=== PATIENT | female | born 1945 | race Caucasian/White ===

== ENCOUNTER 2025-01-10 14:48 | Observation (INO) | payer OTHER ==
[~2025-01-10] VITALS: Ht 157.5 cm; Wt 40.8 kg
--- NOTE | 2025-01-10 15:59 | EKG ---
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
[2025-01-10 16:17] LABS: IMMATURE GRANULOCYTE ABSOLUTE 0.04 K/uL (0-1); NUCLEATED RED BLOOD CELLS 0.0 % (0.0-0.19); PLATELET COUNT (AUTO) 249 K/uL (130-400); RED BLOOD CELL COUNT(AUTO) 4.63 MIL/uL (4.00-5.50); RED CELL DISTRIBUTION WIDTH 15.9 % (11.0-15.5); WHITE BLOOD COUNT (AUTO) 9.9 K/uL (4.8-10.8)
[2025-01-10 16:26] LABS: CREATININE 0.7 mg/dL (0.5-1.0); GLOMERULAR FILTR. RATE CALC 87.0 mL/min (>90); GLUCOSE,RANDOM 94.0 mg/dL (70-105); SODIUM SERUM 135.0 mmol/L (136-145); UREA NITROGEN, BLOOD 14.0 mg/dL (7-18)
--- NOTE | 2025-01-10 16:33 | HMCIMG ---
EXAM: CR Chest, 1 View. CLINICAL HISTORY: [facility] COMPARISON: None provided. FINDINGS: LUNGS: There is no mass, infiltrate, or acute pulmonary abnormality. PLEURAL SPACES: No pleural effusion or pneumothorax. MEDIASTINUM: Cardiac size and mediastinal contours within normal limits. BONES: No acute osseous abnormality. IMPRESSION: No acute cardiopulmonary pathology is evident. /Bypro
[2025-01-10 16:36] LABS: ASPARTATE AMINOTRANSFERASE 33.0 U/L (10-37); CREATINE KINASE, TOTAL 51.0 U/L (21-232); TOTAL PROTEIN, SERUM 8.7 g/dL (6.0-8.3)
--- NOTE | 2025-01-10 16:40 | NUR ---
PT REFUSING BLOOD PRESSURE OR BEING PLACED ON THE MONITOR
[2025-01-10] MEDS ORDERED: 0.9% NACL 500ML IV.SOLN 500 ML IV SCH (17:00)
--- NOTE | 2025-01-10 17:00 | NUR ---
PT REFUSING IV FLUIDS STATES DOES NOT NEED THEM
--- NOTE | 2025-01-10 18:38 | ERN ---
ED Note History of Present Illness Stated Complaint: GBW Chief Complaint: Weakness Time Seen by MD: 15:07 Dictation: 79-year-old female presenting to the emergency department with failure to thrive EMS reported patient had poor hygiene at home and running food/mole leave food. Transported after not feeling well decreased p.o. intake and nausea Allergies: Coded Allergies: No Known Drug Allergies (Unverified Allergy, Intermediate, 12/08/24) Home Meds No Active Prescriptions or Reported Meds Past Medical History Past Medical History: No Pertinent History Surgical History: Surgical History Other: DENIES Social History: ETOH History: Not Applicable Review of System Dictation Constitutional: Pr a Eyes: Negative for injury, pain,redness, and discharge ENT: Negative for injury,pain or swelling Cardiovascular: Negative for chest pain, palpitations, and edema Respiratory: Negative for shortness of breath, cough, and wheezing, Abdomen/GI: Per HPI Back: Negative for injury and pain : Negative for injury, bleeding and discharge MS/Extremity: Negative for injury and deformity Skin: Negative for rash, and discoloration Neuro: Per HPI Initial Vital Sign VS Vital Signs Date Time Temp Pulse Resp B/P (MAP) Pulse Ox O2 Delivery O2 Flow Rate FiO2 01/10/25 15:47 90 16 138/68 96 Room Air 0 Physical Exam Dictation General: awake, alert, unkempt Head/Face: Normocephalic, atraumatic Eyes: PERRL, EOMI, vision at baseline ENT: oral cavity clear, TMs clear, no signs of infection Neck: Trachea midline, supple, no nuchal rigidity Cardiovascular: RRR, normal S1/S2, No MRGs, no JVD Respiratory: CTAB, no respiratory distress, No rales or wheezes Abdomen: Soft, non-tender, non-distended, normal bowel sounds, no guarding or rebound. Skin: Warm, dry, normal turgor, no rash MS/Extremity: Pulses equal, no cyanosis, neurovascular intact, FROM Neuro: COAx4, GCS 15, strength 5/5, CN 2-12 intact, normal cerebellar exam, normal gait, Psych: Normal behavior, mood, and affect normal Results (Laboratory/Radiology) Laboratory/Radiology Laboratory Tests Test 01/10/25 16:06 White Blood Count 9.9 K/uL (4.8-10.8) Red Blood Count 4.63 MIL/uL (4.00-5.50) Hemoglobin 14.6 g/dL (12.0-16.0) Hematocrit 44.8 % (36-48) Mean Corpuscular Volume 96.8 fL (79-99) Mean Corpuscular Hemoglobin 31.5 pg (27.0-33.0) Mean Corpuscular Hemoglobin Concent 32.6 g/dL (32.0-36.0) Red Cell Distribution Width 15.9 % (11.0-15.5) H Platelet Count 249 K/uL (130-400) Mean Platelet Volume 10.6 fL (7.5-10.5) H Immature Granulocyte % (Auto) 0.4 % (0-1) Neutrophils (%) (Auto) 73.8 % (40.0-77.0) Lymphocytes (%) (Auto) 18.5 % (21.0-51.0) L Monocytes (%) (Auto) 6.7 % (3.0-13.0) Eosinophils (%) (Auto) 0.3 % (0.0-8.0) Basophils (%) (Auto) 0.3 % (0.0-5.0) Neutrophils # (Auto) 7.3 K/uL (1.8-7.7) Lymphocytes # (Auto) 1.8 K/uL (1.0-4.8) Monocytes # (Auto) 0.7 K/uL (0.1-1.0) Eosinophils # (Auto) 0.03 K/uL (0.00-0.70) Basophils # (Auto) 0.03 K/uL (0.00-0.20) Absolute Immature Granulocyte (auto 0.04 K/uL (0-1) Nucleated Red Blood Cells 0.0 % (0.0-0.19) Sodium Level 135 mmol/L (136-145) L Potassium Level 3.7 mmol/L (3.5-5.1) Chloride Level 96 mmol/L (101-111) L Carbon Dioxide Level 25 mmol/L (21-32) Blood Urea Nitrogen 14 mg/dL (7-18) Creatinine 0.7 mg/dL (0.5-1.0) Glomerular Filtration Rate Calc 87 mL/min (>90) Random Glucose 94 mg/dL (70-105) Lactic Acid Level 1.6 mmol/L (0.8-2.5) Total Calcium 9.4 mg/dL (8.5-10.1) Total Bilirubin 0.9 mg/dL (0.2-1.0) Direct Bilirubin 0.2 mg/dL (0.0-0.3) Aspartate Amino Transf (AST/SGOT) 33 U/L (10-37) Alanine Aminotransferase (ALT/SGPT) 30 U/L (12-78) Alkaline Phosphatase 123 U/L (50-136) Total Creatine Kinase 51 U/L (21-232) Troponin I High Sensitivity 8 ng/L (4-50) Total Protein 8.7 g/dL (6.0-8.3) H Albumin 4.2 g/dL (3.5-5.0) Labs Reviewed?: Yes EKG: (+) NSR, (+) rhythm, (+) ST depression, (+) nonspecific ST T wave chg ED Course ED Course Orders Procedure Category Date Status Time 12 Lead Ekg Tracing- EKG 01/10/25 Complete Technical 15:07 Basic Metabolic Panel LAB 01/10/25 Complete 15:07 Blood Cult JIMMY 01/10/25 In Process 15:07 Cbc With Differential LAB 01/10/25 Complete 15:07 Hepatic Function Panel LAB 01/10/25 Complete 15:07 Creatine Kinase, Total LAB 01/10/25 Complete 15:07 Lactic Acid LAB 01/10/25 Complete 15:07 Troponin I High LAB 01/10/25 Complete Sensitivity 15:07 Urinalysis Profile LAB 01/10/25 Logged 15:07 Chest 1vw RAD 01/10/25 Resulted 15:07 0.9% Nacl 500ml PHA 01/10/25 In Process Iv.Soln (Ns 500ml 17:00 Current Medications Medications (Trade) Dose Ordered Sig/Marcelino Route PRN Reason Start Time Stop Time Status Last Admin Dose Admin Sodium Chloride 500 ml @ 0 mls/hr Q0M IV 01/10/25 17:00 02/09/25 16:59 Vital Signs Date Time Temp Pulse Resp B/P (MAP) Pulse Ox O2 Delivery O2 Flow Rate FiO2 01/10/25 15:47 90 16 138/68 96 Room Air 0 Medical Decision Making MDM MDM: Differential diagnosis: Rationale: Tests considered and ordered secondary to shared decision making include: labs, ECG and radiology Previous outside records reviewed: Old ER visits. Risk of complication and/or morbidity or mortality of patient management: None Medications-Per medication reconciliation Need for hospitalization: Patient does meet criteria for hospitalization. Need for emergency major/minor surgery: No There are no social concerns with this patient. Prescription drug management Prescriptions will include symptomatic care Patient's prior external medical records from other ER visits were reviewed by me as indicated. Prior testing and results from previous visits were reviewed. Prior tests were taken into account with medical decision making and resource utilization, independent historian/historians were used to obtain complete medical history. I independently interpreted the test that were performed, results were reviewed by me and considered findings on radiology if ordered. Medical management and examination interpretation discussions were had by me with other qualified healthcare professionals as indicated for the patient's care. 79-year-old female adult failure to thrive, initial labs and vitals appear stable we will admit we will likely require placement DX & DISP Disposition: Inpatient Departure Impression: Primary Impression: Hospital admission due to social situation Additional Impression: Adult failure to thrive Condition: Stable Scripts No Active Prescriptions or Reported Meds Referrals: SELF,REFERRAL (PCP) SUSY AYON MD Jan 10, 2025 18:38
--- NOTE | 2025-01-10 18:52 | HP ---
[facility] Date of Service: Jan 10, 2025 Time of Service: 18:52 PCP: Self Referral HISTORY OF PRESENT ILLNESS: This is an 79 year old with history of alcoholism who was brought by EMS to the ED for complaints of generalized body weakness and for evaluation of failure to thrive.Patient states she lives alone and and unable to take care of herself because she is too weak and too fatigued to get up.Patient reports she has no appetite and states " I guess that comes with my age being 79 years old and just drink [place]" Patient is not a good historian and uncooperative . Reportedly patient has a poor hygiene at home. Seen and examined patient in the ER awake alert and coherent, appears comfortable. Patient denies fever, chills, nausea, vomiting, chest pain, palpitation and shortness of breaths. Vital signs temperature 97.5, heart rate 80, blood pressure 158/80 saturation 94% on room air. Labs: CBC unremarkable. Sodium 135, chloride 96 total protein 8.7. Alcohol less than three. Chest x- ray result is unremarkable.ER called and recommended to admit the patient due to social situation and failure to thrive. REVIEW OF SYSTEMS CONSTITUTIONAL: Denies fevers, chills, or night sweats. No unintentional weight loss reported. NEUROLOGICAL: Denies headache, amaurosis fugax, motor weakness, sensory deficit, vertigo/spinning sensation, gait abnormalities, or tremors. ENT: No hearing loss, otalgia, otorrhea, rhinitis, rhinorrhea, hoarseness, or sore throat. CARDIOVASCULAR: Denies any exertional angina, dyspnea on exertion, orthopnea, paroxysmal nocturnal dyspnea, palpitations, life-threatening arrhythmias, claudication. PULMONARY: Denies any shortness of breath, cough, phlegm/sputum, hemoptysis, pleuritic chest pain. SLEEP: Denies morning headaches, daytime somnolence or napping. Denies difficulty falling asleep, staying asleep, waking from sleep. Denies knowledge of snoring. GASTROINTESTINAL: Denies any type of dysphagia to either liquids or solids. Denies nausea, vomiting, pyrosis, early satiety, abdominal pain, diarrhea, constipation, or changes in stool consistency or caliber. Denies coffee-ground emesis, hematemesis, hematochezia, or melanotic stools. GENITOURINARY: Denies frequency, urgency, nocturia, hematuria or incontinence (Storage/Irritative symptoms.) Low urinary stream, straining to void, urinary intermittency or hesitancy, splitting of the voiding stream, terminal dribbling. ENDOCRINOLOGIC: Denies polyuria, polydipsia, polyphagia or heat/cold intolerances. HEMATOLOGIC: Denies thrombophilia/previous clots, or coagulopathy/bleeding disorders. ONCOLOGIC: Denies personal history of malignancy. DERMATOLOGIC: Denies rashes or pruritus. PSYCHIATRIC: Denies any suicidal or homicidal ideation. Denies hallucinations. PAST MEDICAL HISTORY: [ Alcoholism] PAST SURGICAL HISTORY: [ ] PAST SOCIAL HISTORY: [ Patient states she lives alone Patient states she drinks bourbon, former smoker and denies recreational drug use. ] FAMILY HISTORY: [ Noncontributory ] Coded Allergies: No Known Drug Allergies (Unverified Allergy, Intermediate, 12/08/24) PHYSICAL EXAM GENERAL APPEARANCE: The patient is awake, alert, and oriented, in no acute cardiopulmonary distress. NEUROLOGICAL: Cranial nerves II-XII grossly intact. Motor is 5/5 in bilateral upper and lower extremities proximal to distal. No sensory deficits. HEENT: Face is symmetric. Pupils are equal and reactive. Extraocular movements are intact. NECK: Supple. No JVD. No thyromegaly. No submental, submandibular, pre-/pos tauricular, occipital or supraclavicular lymphadenopathy. CHEST: Normal chest expansion. No Telemetry. LUNGS: Absence of any rales, rhonchi or any wheezing. CARDIOVASCULAR: Regular. S1 and S2 normal. No appreciable rubs, murmurs or gallops. ABDOMEN: Soft, nontender, and nondistended. There is no rebound, voluntary guarding, or rigidity. : Deferred. No Xiao. EXTREMITIES: Non-edematous and not cyanotic. No clubbing. Good capillary refill. SKIN: No skin breakdown. Vital Sign (Last 24 Hours) 01/10/25 15:47 Pulse 90 Resp 16 B/P (MAP) 138/68 Pulse Ox 96 O2 Delivery Room Air O2 Flow Rate 0 LABS: Laboratory: Test 01/10/25 16:06 Range/Units White Blood Count 9.9 4.8-10.8 K/uL Red Blood Count 4.63 4.00-5.50 MIL/uL Hemoglobin 14.6 12.0-16.0 g/dL Hematocrit 44.8 36-48 % Mean Corpuscular Volume 96.8 79-99 fL Mean Corpuscular Hemoglobin 31.5 27.0-33.0 pg Mean Corpuscular Hemoglobin Concent 32.6 32.0-36.0 g/dL Red Cell Distribution Width 15.9 H 11.0-15.5 % Platelet Count 249 130-400 K/uL Mean Platelet Volume 10.6 H 7.5-10.5 fL Immature Granulocyte % (Auto) 0.4 0-1 % Neutrophils (%) (Auto) 73.8 40.0-77.0 % Lymphocytes (%) (Auto) 18.5 L 21.0-51.0 % Monocytes (%) (Auto) 6.7 3.0-13.0 % Eosinophils (%) (Auto) 0.3 0.0-8.0 % Basophils (%) (Auto) 0.3 0.0-5.0 % Neutrophils # (Auto) 7.3 1.8-7.7 K/uL Lymphocytes # (Auto) 1.8 1.0-4.8 K/uL Monocytes # (Auto) 0.7 0.1-1.0 K/uL Eosinophils # (Auto) 0.03 0.00-0.70 K/uL Basophils # (Auto) 0.03 0.00-0.20 K/uL Absolute Immature Granulocyte (auto 0.04 0-1 K/uL Nucleated Red Blood Cells 0.0 0.0-0.19 % Sodium Level 135 L 136-145 mmol/L Potassium Level 3.7 3.5-5.1 mmol/L Chloride Level 96 L 101-111 mmol/L Carbon Dioxide Level 25 21-32 mmol/L Blood Urea Nitrogen 14 7-18 mg/dL Creatinine 0.7 0.5-1.0 mg/dL Glomerular Filtration Rate Calc 87 >90 mL/min Random Glucose 94 70-105 mg/dL Lactic Acid Level 1.6 0.8-2.5 mmol/L Total Calcium 9.4 8.5-10.1 mg/dL Total Bilirubin 0.9 0.2-1.0 mg/dL Direct Bilirubin 0.2 0.0-0.3 mg/dL Aspartate Amino Transf (AST/SGOT) 33 10-37 U/L Alanine Aminotransferase (ALT/SGPT) 30 12-78 U/L Alkaline Phosphatase 123 50-136 U/L Total Creatine Kinase 51 21-232 U/L Troponin I High Sensitivity 8 4-50 ng/L Total Protein 8.7 H 6.0-8.3 g/dL Albumin 4.2 3.5-5.0 g/dL Current Medications Medications (Trade) Dose Ordered Sig/Marcelino Route PRN Reason Start Time Stop Time Status Last Admin Dose Admin Sodium Chloride 500 ml @ 0 mls/hr Q0M IV 01/10/25 17:00 02/09/25 16:59 DIAGNOSTICS / RADIOLOGY: [ ] ASSESSMENT: Failure to thrive POA Debility POA Mild Hyponatremia and chloremia POA For social reason: inability to take care of self POA History of alcoholism POA PLAN: We will admit patient in medical ,surgical floor We will start on heart healthy diet We will start NS @ 75 ml / hr x 1 bag and re evaluate We will start on Famotidine 20 mg IV daily for GI prophylaxis We will replace electrolytes as needed per protocol We will add prn medication for fever,pain,cough , nausea and vomiting We will request case management service We will request PT service to evaluate and treat We will reconcile home meds once medlist available We will request labs in am Further orders to follow depending on above results Case discussed with attending physician and came up with above treatment and p roxanne of care. ADVANCED CARE PLANNING 1. Which of the following were discussed? Hospice Care - No Therapeutic options - Yes Advance Directives - No Other discussions - 2. Discussed with who? Patient 3. Voluntary nature of this service was explained to the patient? Yes 4. Amount of time spent - __20 5. Reviewed by Physician? (if this service was performed by NPP) Yes Patient seen and examined by me. Agree with note by [employer]/TRACK AND FIELD COACH SEE ADDITIONAL ORDERS PER CHART DISCUSSED WITH NURSING STAFF GONZALO PEÑA TALK SHOW HOST Jan 10, 2025 18:52
[2025-01-10] MEDS ORDERED: LACTULOSE 20 GM/30 ML UDCUP PO PRN (20:00)
[2025-01-10] MEDS: FAMOTIDINE 20MG VIAL IV SCH (20:36)
[2025-01-10] MEDS: 0.9%NACL 1000ML 1,000 ML IV SCH (20:38)
--- NOTE | 2025-01-10 21:56 | NUR ---
PATIENT STATES CAN NOT PROVIDE A URINE SAMPLE RIGHT NOW, REFUSED IN AND OUT CATH, STATES WILL TRY IN ROOM UP STAIRS FOR URINE SAMPLE.
[2025-01-10 22:00] VITALS: BP 173/83; PULSE 80; RESP 17; TEMP 98.2
[2025-01-11] VITALS (7 sets, daily range): BP systolic 116–160; BP diastolic 66–91; PULSE 76–79; RESP 17–18; TEMP 97.6–98; O2SAT 90
[2025-01-11 06:00] LABS: ADD UA MICROSCOPIC YES; APPEARANCE,URINE CLEAR (CLEAR); GLUCOSE, URINE (UA) NEGATIVE (NEGATIVE); LEUKOCYTE ESTERASE ,URINE 25 Leu/uL (NEGATIVE); NITRATE,URINE NEGATIVE (NEGATIVE); OCCULT BLOOD,URINE NEGATIVE (NEGATIVE)
[2025-01-11 06:09] LABS: SQUAMOUS EPITHELIAL CELL,UR RARE /HPF (0-2)
[2025-01-11 06:51] LABS: IMMATURE GRANULOCYTE ABSOLUTE 0.04 K/uL (0-1); NUCLEATED RED BLOOD CELLS 0.0 % (0.0-0.19); PLATELET COUNT (AUTO) 284 K/uL (130-400); RED BLOOD CELL COUNT(AUTO) 4.22 MIL/uL (4.00-5.50); RED CELL DISTRIBUTION WIDTH 15.9 % (11.0-15.5); WHITE BLOOD COUNT (AUTO) 8.8 K/uL (4.8-10.8)
[2025-01-11 07:01] LABS: ALCOHOL, BLOOD < 3 mg/dL (0-10)
[2025-01-11 07:14] LABS: ASPARTATE AMINOTRANSFERASE 30 U/L (10-37); CREATININE 0.6 mg/dL (0.5-1.0); GLOMERULAR FILTR. RATE CALC 90 mL/min (>90); GLUCOSE,RANDOM 91 mg/dL (70-105); SODIUM SERUM 138 mmol/L (136-145); TOTAL PROTEIN, SERUM 7.0 g/dL (6.0-8.3); UREA NITROGEN, BLOOD 11 mg/dL (7-18)
--- NOTE | 2025-01-11 08:26 | NUR ---
IV PT CALLED AND STATED SHE PULLED IV NOTED. BLOOD NOTED ON LINEN. GAUZE AND TAPE APPLIED TO AREA. PT STATES THAT SHE DOES NOT WANT ANOTHER IV. TEACHING AND DISCUSSION OF IMPORTANCE OF NUTRIENTS AND FLUIDS. PT STATES SHE DOES NOT WANT ANOTHER IV AT THIS TIME.
[2025-01-11] MEDS ORDERED: MAGNESIUM 2GM PREMIX 50ML 50 ML IV PRN (08:30)
[2025-01-11] MEDS ORDERED: COMPOUND IV REFRIGERATED 1 EACH IVSOLN MISC PRN (09:00)
[2025-01-11] MEDS: M.V.I. IV [ADULT] 10 ML, FOLic ACID 5 MG/ML VIAL 1 MG, THIAMINE HCL 100 MG in 0.9%NACL ... IV SCH (09:00)
[2025-01-11] MEDS: ENOXAPARIN SODIUM 30 MG/0.3 ML SQ SCH (09:17)
--- NOTE | 2025-01-11 10:46 | PN ---
[facility] PROGRESS NOTE Date of Service: Jan 11, 2025 Time of Service: 10:37 SUBJECTIVE: This is an 79 year old with history of alcoholism who was brought by EMS to the ED for complaints of generalized body weakness and for evaluation of failure to thrive.Patient states she lives alone and and unable to take care of herself because she is too weak and too fatigued to get up.Patient reports she has no appetite and states " I guess that comes with my age being 79 years old and just drink [place]" Patient is not a good historian and uncooperative . Reportedly patient has a poor hygiene at home. Seen and examined patient in the ER awake alert and coherent, appears comfortable. Patient denies fever, chills, nausea, vomiting, chest pain, palpitation and shortness of breaths. Vital signs temperature 97.5, heart rate 80, blood pressure 158/80 saturation 94% on room air. Labs: CBC unremarkable. Sodium 135, chloride 96 total protein 8.7. Alcohol less than three. Chest x- ray result is unremarkable.ER called and recommended to admit the patient due to social situation and failure to thrive. 01/11/2025 - REVIEW OF SYSTEMS CONSTITUTIONAL: Denies fevers, chills, or night sweats. No unintentional weight loss reported. NEUROLOGICAL: Denies headache, amaurosis fugax, motor weakness, sensory deficit, vertigo/spinning sensation, gait abnormalities, or tremors. ENT: No hearing loss, otalgia, otorrhea, rhinitis, rhinorrhea, hoarseness, or sore throat. CARDIOVASCULAR: Denies any exertional angina, dyspnea on exertion, orthopnea, paroxysmal nocturnal dyspnea, palpitations, life-threatening arrhythmias, claudication. PULMONARY: Denies any shortness of breath, cough, phlegm/sputum, hemoptysis, pleuritic chest pain. SLEEP: Denies morning headaches, daytime somnolence or napping. Denies difficulty falling asleep, staying asleep, waking from sleep. Denies knowledge of snoring. GASTROINTESTINAL: Denies any type of dysphagia to either liquids or solids. Denies nausea, vomiting, pyrosis, early satiety, abdominal pain, diarrhea, constipation, or changes in stool consistency or caliber. Denies coffee-ground emesis, hematemesis, hematochezia, or melanotic stools. GENITOURINARY: Denies frequency, urgency, nocturia, hematuria or incontinence (Storage/Irritative symptoms.) Low urinary stream, straining to void, urinary intermittency or hesitancy, splitting of the voiding stream, terminal dribbling. ENDOCRINOLOGIC: Denies polyuria, polydipsia, polyphagia or heat/cold intolerances. HEMATOLOGIC: Denies thrombophilia/previous clots, or coagulopathy/bleeding disorders. ONCOLOGIC: Denies personal history of malignancy. DERMATOLOGIC: Denies rashes or pruritus. PSYCHIATRIC: Denies any suicidal or homicidal ideation. Denies hallucinations. PHYSICAL EXAM GENERAL APPEARANCE: The patient is awake, alert, and oriented, in no acute cardiopulmonary distress. NEUROLOGICAL: Cranial nerves II-XII grossly intact. Motor is 5/5 in bilateral upper and lower extremities proximal to distal. No sensory deficits. HEENT: Face is symmetric. Pupils are equal and reactive. Extraocular movements are intact. NECK: Supple. No JVD. No thyromegaly. No submental, submandibular, pre- /postauricular, occipital or supraclavicular lymphadenopathy. CHEST: Normal chest expansion. No Telemetry. LUNGS: Absence of any rales, rhonchi or any wheezing. CARDIOVASCULAR: Regular. S1 and S2 normal. No appreciable rubs, murmurs or gallops. ABDOMEN: Soft, nontender, and nondistended. There is no rebound, voluntary guarding, or rigidity. : Deferred. No Xiao. EXTREMITIES: Non-edematous and not cyanotic. No clubbing. Good capillary refill. SKIN: No skin breakdown. Vital Signs (last 8hr) Date Time Temp Pulse Resp B/P (MAP) Pulse Ox O2 Delivery O2 Flow Rate FiO2 01/11/25 09:14 153/80 01/11/25 08:02 118/91 01/11/25 07:48 97.5 79 17 160/84 90 Room Air 01/11/25 04:00 98.1 76 17 116/66 100 Room Air 21 LABS: Laboratory: Test 01/11/25 06:25 01/10/25 16:06 01/10/25 05:09 Range/Units White Blood Count 8.8 4.8-10.8 K/uL Red Blood Count 4.22 4.00-5.50 MIL/uL Hemoglobin 13.5 12.0-16.0 g/dL Hematocrit 40.7 36-48 % Mean Corpuscular Volume 96.4 79-99 fL Mean Corpuscular Hemoglobin 32.0 27.0-33.0 pg Mean Corpuscular Hemoglobin Concent 33.2 32.0-36.0 g/dL Red Cell Distribution Width 15.9 H 11.0-15.5 % Platelet Count 284 130-400 K/uL Mean Platelet Volume 10.5 7.5-10.5 fL Immature Granulocyte % (Auto) 0.5 0-1 % Neutrophils (%) (Auto) 65.7 40.0-77.0 % Lymphocytes (%) (Auto) 23.3 21.0-51.0 % Monocytes (%) (Auto) 8.4 3.0-13.0 % Eosinophils (%) (Auto) 1.6 0.0-8.0 % Basophils (%) (Auto) 0.5 0.0-5.0 % Neutrophils # (Auto) 5.8 1.8-7.7 K/uL Lymphocytes # (Auto) 2.0 1.0-4.8 K/uL Monocytes # (Auto) 0.7 0.1-1.0 K/uL Eosinophils # (Auto) 0.14 0.00-0.70 K/uL Basophils # (Auto) 0.04 0.00-0.20 K/uL Absolute Immature Granulocyte (auto 0.04 0-1 K/uL Nucleated Red Blood Cells 0.0 0.0-0.19 % Sodium Level 138 136-145 mmol/L Potassium Level 3.3 L 3.5-5.1 mmol/L Chloride Level 100 L 101-111 mmol/L Carbon Dioxide Level 31 21-32 mmol/L Blood Urea Nitrogen 11 7-18 mg/dL Creatinine 0.6 0.5-1.0 mg/dL Glomerular Filtration Rate Calc 90 >90 mL/min Random Glucose 91 70-105 mg/dL Hemoglobin A1c 5.7 4.0-6.0 % Estimated Average Glucose (eAG) 117 70-126 mg/dL Total Calcium 8.6 8.5-10.1 mg/dL Magnesium Level 1.70 L 1.80-2.40 mg/dL Total Bilirubin 0.9 0.2-1.0 mg/dL Aspartate Amino Transf (AST/SGOT) 30 10-37 U/L Alanine Aminotransferase (ALT/SGPT) 31 12-78 U/L Alkaline Phosphatase 96 50-136 U/L Total Protein 7.0 6.0-8.3 g/dL Albumin 3.3 #L 3.5-5.0 g/dL Thyroid Stimulating Hormone (TSH) 2.16 0.36-3.74 uIU/mL Serum Alcohol < 3 0-10 mg/dL Lactic Acid Level 1.6 0.8-2.5 mmol/L Direct Bilirubin 0.2 0.0-0.3 mg/dL Total Creatine Kinase 51 21-232 U/L Troponin I High Sensitivity 8 4-50 ng/L Urine Color LIGHT-YELLOW YELLOW Urine Appearance CLEAR CLEAR Urine pH 7.0 5.0-8.0 Urine Specific Golden 1.008 1.001-1.031 Urine Protein NEGATIVE NEGATIVE mg/dL Urine Glucose (UA) NEGATIVE NEGATIVE mg/dL Urine Ketones 5 H NEGATIVE mg/dL Urine Occult Blood NEGATIVE NEGATIVE Urine Nitrate NEGATIVE NEGATIVE Urine Bilirubin NEGATIVE NEGATIVE mg/dL Urine Urobilinogen 2.0 H 0.2-1.0 mg/dL Urine Leukocyte Esterase 25 H NEGATIVE Anu/uL Urine RBC 0-1 0-1 /HPF Urine WBC 2-5 H 0-1 /HPF Urine Squamous Epithelial Cells RARE 0-2 /HPF Urine Bacteria RARE None Seen /HPF Current Medications Medications (Trade) Dose Ordered Sig/Marcelino Route PRN Reason Start Time Stop Time Status Last Admin Dose Admin Enoxaparin Sodium (Lovenox) 30 mg BID SQ 01/11/25 09:00 02/10/25 08:59 01/11/25 09:17 30 MG Famotidine (Pepcid 20mg Vial) 20 mg DAILY IV 01/10/25 21:00 02/09/25 20:59 01/11/25 08:07 20 MG Lactulose (Constulose 20gm/ 30ml Udcup) 20 gm BID PRN PO CONSTIPATION 01/10/25 20:00 02/09/25 19:59 Losartan Potassium (CozAAR 25MG TAB) 25 mg DAILY PO 01/11/25 09:00 02/10/25 08:59 01/11/25 09:16 25 MG Magnesium Sulfate 50 ml @ 0 mls/hr PROTOCOL PRN IV MAGNESIUM PROTOCOL 01/11/25 08:30 02/10/25 08:29 Multivitamins/ Minerals 10 ml/ Folic Acid 1 mg/ Thiamine HCl 100 mg/Sodium Chloride 1,010 ml @ 100 mls/hr DAILY IV 01/11/25 09:00 01/13/25 19:05 Ondansetron HCl (zoFRAN 4MG INJ) 4 mg Q6H PRN IV NAUSEA/VOMITING 01/10/25 20:00 02/09/25 19:59 Potassium Chloride 100 ml @ 50 mls/hr AD PRN IV POTASSIUM PROTOCOL 01/11/25 08:30 02/10/25 08:29 Sodium Chloride 500 ml @ 0 mls/hr Q0M IV 01/10/25 17:00 02/09/25 16:59 Sodium Chloride 1,000 ml @ 75 mls/hr [id number] IV 01/10/25 20:00 02/09/25 19:59 01/10/25 20:38 75 MLS/HR DIAGNOSTICS / RADIOLOGY: [ ] ASSESSMENT: Failure to thrive POA Debility POA Mild Hyponatremia and chloremia POA For social reason: inability to take care of self POA History of alcoholism POA Hypertension POA Severely malnourished POA PLAN: Failure to thrive We will start on heart healthy diet We will start NS @ 75 ml / hr x 1 bag and re evaluate We will start on Famotidine 20 mg IV daily for GI prophylaxis We will replace electrolytes as needed per protocol We will add prn medication for fever,pain,cough , nausea and vomiting Inability to take care of self, severe malnourishment, hypertension We will work with health social work professor to get her placed physical therapy evaluation pending We will start banana bag on the patient Home medications not reconciled yet, started the patient on 25 mg losartan for blood pressure We will start on heart healthy diet We will request case management service DVT prophylaxis with Lovenox GI prophylaxis with famotidine Further orders to follow depending on above results We will request labs in am ATTESTATION BY PHYSICIAN I have seen and examined the patient. I reviewed the documentation, medical decision making, and treatment plan as noted by the resident provider above. I agree with the findings and plan of care. Tony Matthews MD, KEERTI K MD Jan 11, 2025 10:46
--- NOTE | 2025-01-11 10:47 | NUR ---
DCP: HOME Pt was currently living in her home alone. Pt was previously at [facility] and was DCed 12/15 and went to [facility] for a week. After that she went to [place] for a while and then decided to leave and return to her home. Pt is being followed by LISSETH Katz [phone]. Pt does not have DME, home health, or provider services at this time. Pt does not have a PCP at this time however states that she is actively looking for one. At [place] pt states that she wants to go home. Addendum: 01/11/25 at 1050 by MICHEL JOAQUIN SS Amended: Links added.
--- NOTE | 2025-01-11 10:51 | NUR ---
HOME SITUATION SW confirmed that there is an open APS case and her welfare case worker is Gianna [phone]. As per APS welfare case worker she was working with pt to find her additional services in the community. Pt does have a home however when at home pt needs assistance with home management and getting groceries. APS binder caser mentioned that pt could go back to [facility] because she was on a month to month basis there however when that was mentioned to pt she got upset and threatened to leave AMA. Pt states that she wants to go home. SW contacted binder caser to advise of pt disposition and she stated that she will try and come visit with pt today.
--- NOTE | 2025-01-11 11:20 | NUR ---
NORMAL SALINE NOT GIVEN AT THIS TIME. ONE TIME DOSE.
--- NOTE | 2025-01-11 11:24 | NUR ---
VITAMIN BAG DR. DELTA DEAN AWARE THAT PT IS REFUSING IV. STATED OKAY WITH VITAMIN BAG. NOT ADMINISTERED AT THIS TIME.
[2025-01-11] MEDS ORDERED: PoTASSium chl 10% ELIXIR 20MEQ 20 MEQ/15 ML UDCUP PO PRN (12:00)
--- NOTE | 2025-01-11 12:25 | DS ---
Discharge Summary Hospital Course Summary: This is an 79 year old with history of alcoholism who was brought by EMS to the ED for complaints of generalized body weakness and for evaluation of failure to thrive.Patient states she lives alone and and unable to take care of herself because she is too weak and too fatigued to get up.Patient reports she has no appetite and states " I guess that comes with my age being 79 years old and just drink [place]" Patient is not a good historian and uncooperative . Reportedly patient has a poor hygiene at home. Seen and examined patient in the ER awake alert and coherent, appears comfortable. Patient denies fever, chills, nausea, vomiting, chest pain, palpitation and shortness of breaths. Vital signs temperature 97.5, heart rate 80, blood pressure 158/80 saturation 94% on room air. Labs: CBC unremarkable. Sodium 135, chloride 96 total protein 8.7. Alcohol less than three. Chest x- ray result is unremarkable.ER called and recommended to admit the patient due to social situation and failure to thrive. 01/11/2025 - patient is alert, awake and oriented to time place person. Patient says she feels better, when questioned regarding the need for EMS, she informed that she wanted to get evaluated at the hospital as she felt little short of breath. Patient removed IV line and is denying banana bag. Patient had mild hypokalemia which has been treated. Patient wishes to leave, no medical attention needed at this point. Patient denies drinking alcohol, doing drugs. 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 CLINICAL HISTORY: w COMPARISON: None provided. FINDINGS: LUNGS: There is no mass, infiltrate, or acute pulmonary abnormality. PLEURAL SPACES: No pleural effusion or pneumothorax. MEDIASTINUM: Cardiac size and mediastinal contours within normal limits. BONES: No acute osseous abnormality. IMPRESSION: No acute cardiopulmonary pathology is evident. /[place] DICTATED BY: NILTON TRAN MD DATE: 01/10/251731 ELECTRONICALLY SIGNED BY: NILTON TRAN MD DATE: 01/10/251731 Assessment/Plan: ASSESSMENT: Failure to thrive POA Debility POA Mild Hyponatremia and chloremia POA For social reason: inability to take care of self POA History of alcoholism POA Hypertension POA Severely malnourished POA Discharge Instructions: Eat a balanced diet Drink plenty of fluids Make sure your diet consists of balanced with the amount of carbohydrates, proteins, fats. Take a daily supplement of vitamins. Stay compliant with the medications Follow up with primary in 1 week Home Medications: No Active Prescriptions or Reported Meds Time spent arranging discharge: 1-30 minutes ATTESTATION BY PHYSICIAN I have seen and examined the patient. I reviewed the documentation, medical decision making, and treatment plan as noted by the resident provider above. I agree with the findings and plan of care. Tony Matthews MD, KEERTI K MD Jan 11, 2025 12:24
[2025-01-11] MEDS: PoTASSium chloRIDE 20MEQ ER 20 MEQ ERTAB PO PRN (12:28)
--- NOTE | 2025-01-11 13:10 | NUR ---
DISCHARGE PT AWARE TO FOLLOW UP WITH PCP WITHIN 1 WEEK. PT AWARE OF DISCHARGE. TEACHINGS GIVEN.
--- NOTE | 2025-01-11 16:16 | NUR ---
Pt d/c before RD could assess. Addendum: 01/11/25 at [address] Amended: Links added.
== END 2025-01-11 15:15 | disposition home or self-care (01) ==
LOC: EDH 14:48 → EDHIP 19:42 → INTOOBSV 19:42 → 3CH 22:13
PROVIDERS: ADMIT Internal Medicine; ATTEND Internal Medicine
DX: E87.1 Hypo-osmolality and hyponatremia (principal); R62.7 Adult failure to thrive; E43 Unspecified severe protein-calorie malnutrition; F10.20 Alcohol dependence, uncomplicated; R53.81 Other malaise; I10 Essential (primary) hypertension; Z79.899 Other long term (current) drug therapy; Z87.891 Personal history of nicotine dependence; Z68.1 Body mass index [BMI] 19.9 or less, adult; Y90.0 Blood alcohol level of less than 20 mg/100 ml
CPT/HCPCS: 99285; 82550; 80076; 84484; 80048; 85025 ×2; 87040 ×2; 83605; 81001; 36415; 71045; 93005; 96374; 96372; 83036; 84443; 83735; 80053; 87086; J3490 ×4; J7030 ×2; G0378 ×2; J1650; J3411